=== PATIENT | female | born 1980 | race African-American/Black ===

== ENCOUNTER 2018-12-16 07:30 | Emergency (ER) | payer OTHER ==
--- NOTE | 2018-12-16 07:33 | PDOC ---
History of Present Illness - General Chief Complaint: Pain, Acute Stated Complaint: right ankle pain Time Seen by Provider: 12/16/18 07:32 - History of Present Illness Initial Comments: 12/16/18 08:07 38yo female, who works in [employer] at [employer], presents after a mechanical slip and fall on the ice while walking into work. Pt states she slipped on ice in the parking lot. States she twisted her R ankle -inversion and fell landing on her hands. No head injury. No loc. No neck or back pain. Pt was able to get up and walk into the hospital. Pt c/o R lateral malleolus pain/ankle pain. No foot pain. No knee or hip pain. No cp/sob/palpitations. No abd pain. No n/v/d. No other complaints. PMhx: fibroids PShx: fibroid ablation Allergies: NKDA Meds: OCP Past History - Past Medical History Allergies/Adverse Reactions: Allergies Allergy/AdvReac Type Severity Reaction Status Date / Time No Known Allergies Allergy Verified 12/16/18 07:30 Home Medications: Ambulatory Orders Norgestimate-Ethinyl Estradiol [Hnw-Zv-Jbiotjol Tablet] 1 each PO DAILY Review of Systems - Review of Systems Able to Perform ROS?: Yes Is the patient limited Trinidadian proficient: No Constitutional: No: Chills, Fever HEENTM: No: Nose Pain, Throat Pain Respiratory: No: Cough, Shortness of Breath Cardiac (ROS): No: Chest Pain, Lightheadedness, Palpitations ABD/GI: No: Diarrhea, Nausea, Vomiting, Abdominal cramping : No: Burning, Dysuria Musculoskeletal: Yes: Joint Pain (R ankle pain). No: Back Pain, Neck Pain Integumentary: No: Bruising, Change in Color, Erythema Neurological: No: Headache, Numbness, Paresthesia, Tingling, Tremors All Other Systems: Reviewed and Negative *Physical Exam - Vital Signs 12/16/18 08:11 Selected Entries 12/16/18 07:30 Temperature 98.9 F Pulse Rate 69 Respiratory 16 Rate Blood Pressure 122/90 Blood Pressure 100 Mean O2 Sat by Pulse 100 Oximetry (%) Weight 90.718 kg - Physical Exam General Appearance: Yes: Nourished, Appropriately Dressed. No: Apparent Distress HEENT: positive: EOMI, Normal Voice Neck: positive: Supple. negative: Tender, Tender midline Respiratory/Chest: positive: Lungs Clear, Normal Breath Sounds. negative: Respiratory Distress Cardiovascular: positive: Regular Rhythm, Regular Rate, S1, S2. negative: Edema Gastrointestinal/Abdominal: positive: Normal Bowel Sounds, Flat, Soft. negative : Guarding, Rebound, Tenderness Musculoskeletal: positive: Normal Inspection. negative: Decreased Range of Motion, Vertebral Tenderness Extremity: positive: Normal Capillary Refill, Normal Inspection, Normal Range of Motion, Other (R lateral malleolus ttp, pedal pulses intact, no hand ttp, no ttp over foot, sensation intact, brisk cap refill, no wrist ttp). negative: Calf Tenderness Integumentary: positive: Normal Color, Dry, Warm Neurologic: positive: Fully Oriented, Alert, Normal Mood/Affect, Normal Response , Motor Strength 5/5 Medical Decision Making - Medical Decision Making 12/16/18 08:13 a/p: 38yo female with R lateral malleolus pain after mechanical slip and fall -mild soft tissue swelling over R lateral malleolus, mild ttp just anterior to the malleolus, neg anterior drawer, from of the ankle joint, joint is stable -upreg -R ankle xray -tylenol for pain -ice bag 12/16/18 09:00 xrays reviewed - no acute findings 12/16/18 09:09 pt with mild pain with ambulation placed in an gabriel wrap, air cast, walking shoe pt feeling better after splinting. will give orthopedic follow up if pain continues tylenol as needed for pain ice and elevate 12/16/18 09:28 xray reviewed by radiology - no acute findings *DC/Admit/Observation/Transfer Diagnosis at time of Disposition: Ankle sprain - Discharge Dispostion Disposition: HOME Condition at time of disposition: Stable Decision to Admit order: No - Referrals Referrals: Atif Bejarano MD [Staff Physician] - George Dasilva MD [Staff Physician] - - Patient Instructions Printed Discharge Instructions: DI for Ankle Sprain Additional Instructions: Please apply ice to the ankle - 20 min on and 20 min off. Please take tylenol as needed for pain. Please make an appointment to see orthopedics for follow up for your ankle pain. Please also follow up with your PMD. Please return to the ED with any further concerns or complaints. - Post Discharge Activity
[2018-12-16 07:37] VITALS: BP 122/90; PULSE 69; TEMP 98.9; BMI 31.3
[2018-12-16] MEDS ORDERED: ACETAMINOPHEN 500 MG TABLET (FP) PO ONE (08:13)
[2018-12-16] MEDS ORDERED: ACETAMINOPHEN 500 MG TABLET (FP) ONE (08:17)
== END 2018-12-16 09:21 | disposition home or self-care (01) ==
LOC: FER 07:30
PROC: 2W3QX1Z Immobilization of Right Lower Leg using Splint (ICD-10-PCS; principal; 2018-12-16)
DX: S93.401A Sprain of unspecified ligament of right ankle, initial encounter (principal); W00.0XXA Fall on same level due to ice and snow, initial encounter; Y93.01 Activity, walking, marching and hiking; Y92.481 Parking lot as the place of occurrence of the external cause
CPT/HCPCS: 73610-TC-RT-FY; 73630-TC-RT-FY; 84703; 99282-25

== ENCOUNTER 2019-02-02 15:52 | Emergency (ER) | payer BC, OTHER ==
[2019-02-02 16:19] VITALS: BP 147/83; PULSE 90; TEMP 97.8; BMI 31.3
[2019-02-02] MEDS ORDERED: NAPROXEN 500 MG TABLET (FP) PO ONE (16:50)
[2019-02-02] MEDS ORDERED: NAPROXEN 500 MG TABLET (FP) ONE (16:54)
--- NOTE | 2019-02-02 16:54 | PDOC ---
History of Present Illness - General Chief Complaint: Pain Stated Complaint: RT HIP PAIN Time Seen by Provider: 02/02/19 15:55 - History of Present Illness Initial Comments: 02/02/19 16:48 38 F with no PMH presents to ED with 1 day of R hip pain. Pt denies any falls or trauma. States that she awoke this morning with a soreness in her R hip. Throughout the day, the pain gradually worsened. Pain is worse with movement of her RLE and alleviated with rest. 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 Denies any F/C. Pt went to her PMD today who sent her to ED to rule out "nerve compression". Pt denies any numbness or weakness in her extremity. Torie any shooting pain down the leg. Denies any back pain. Past History - Past Medical History Allergies/Adverse Reactions: Allergies Allergy/AdvReac Type Severity Reaction Status Date / Time No Known Allergies Allergy Verified 02/02/19 15:55 Home Medications: Ambulatory Orders Norgestimate-Ethinyl Estradiol [Yec-Iq-Bcyuzduj Tablet] 1 each PO DAILY Naproxen 500 mg PO BID #10 tablet 02/02/19 CVA: No COPD: No - Suicide/Smoking/Psychosocial Hx Smoking History: Never smoked Have you smoked in the past 12 months: No Information on smoking cessation initiated: No Hx Alcohol Use: No Drug/Substance Use Hx: No Review of Systems - Review of Systems Comments:: 02/02/19 16:49 "GENERAL/CONSTITUTIONAL: No fever or chills. No weakness. HEAD, EYES, EARS, NOSE AND THROAT: No change in vision. No ear pain or discharge. No sore throat. CARDIOVASCULAR: No chest pain, no shortness of breath, no loss of consciousness RESPIRATORY: No cough, wheezing, or hemoptysis. GASTROINTESTINAL: No nausea, vomiting, diarrhea or constipation. GENITOURINARY: No dysuria, frequency, or change in urination. MUSCULOSKELETAL: +R hip pain SKIN: No rash NEUROLOGIC: No vertigo, no change in strength/sensation. ENDOCRINE: No increased thirst. No abnormal weight change. HEMATOLOGIC/LYMPHATIC: No anemia, easy bleeding, or history of blood clots. ALLERGIC/IMMUNOLOGIC: No hives or skin allergy. *Physical Exam - Vital Signs Last Vital Signs Temp Pulse Resp BP Pulse Ox 97.8 F 90 20 147/83 100 02/02/19 15:55 02/02/19 15:55 02/02/19 15:55 02/02/19 15:55 02/02/19 15:55 - Physical Exam Comments: 02/02/19 16:50 GENERAL: Awake, alert, and fully oriented, in no acute distress. HEAD: No signs of trauma EYES: PERRLA, EOMI, sclera anicteric, conjunctiva clear ENT: Auricles normal inspection, hearing grossly normal, nares patent, oropharynx clear without exudates. Moist mucosa NECK: Nontender, no stepoffs, Normal ROM, supple, no lymphadenopathy, JVD, or masses LUNGS: Breath sounds equal, clear to auscultation bilaterally. No wheezes, and no crackles HEART: Regular rate and rhythm, normal S1 and S2, no murmurs, rubs or gallops ABDOMEN: Soft, nontender, normoactive bowel sounds. No guarding, no rebound. No masses EXTREMITIES: Normal range of motion, no edema. No clubbing or cyanosis. No cords, erythema, or tenderness NEUROLOGICAL: Cranial nerves II through XII intact. 5/5 strength and sensation in all extremities, Normal speech, normal gait, normal cerebellar function SKIN: Warm, Dry, normal turgor, no rashes or lesions noted. ED Treatment Course - RADIOLOGY Radiology Studies Ordered: Category Date Time Status HIP & PELVIS-RIGHT [RAD] Stat Radiology 02/02/19 16:47 Ordered Medical Decision Making - Medical Decision Making 02/02/19 16:51 38 F with atraumatic R hip pain, worsened with movement and alleviated with rest. Suspect bursitis 2/2 overuse. Pt with normal neurovascular exam, no deformity. - R hip X ray - Naproxen - F/u ortho 02/02/19 18:32 XR negative on my read Pt is well appearing, with normal vitals. Clinically stable for DC at this time. I discussed the physical exam findings, ancillary test results and final diagnoses with the patient. I answered all of the patient's questions. The patient was satisfied with the care received and felt comfortable with the discharge plan and treatment plan. The patient agrees to follow up with the primary care physician within 24-72 hours. *DC/Admit/Observation/Transfer Diagnosis at time of Disposition: Hip pain - Discharge Dispostion Disposition: HOME - Prescriptions Prescriptions: Naproxen 500 mg PO BID #10 tablet - Referrals Referrals: George Dasilva MD [Staff Physician] - - Patient Instructions Printed Discharge Instructions: DI for Hip Bursitis Additional Instructions: Take the naproxen twice daily as prescribed to treat your hip pain. Be sure to rest and do not over-exert yourself. If you develop any worsening pain, fevers, or any other concerning symptoms, return to the ER immediately. If the pain persists for >48 hours, call the number provided to make an appointment with an orthopedic surgeon. You may need a MRI to further evaluate your pain. - Post Discharge Activity Forms/Work/School Notes: Back to Work - Attestations Physician Attestion: 02/02/19 16:54 I, Dr. George Gunter MD, attest that this document has been prepared under my direction and personally reviewed by me in its entirety. I further attest, that it accurately reflects all work, treatment, procedures and medical decision -making performed by me.
== END 2019-02-02 18:47 | disposition home or self-care (01) ==
LOC: FER 15:52
DX: M25.551 Pain in right hip (principal)
CPT/HCPCS: 73523-TC-FY; 81025; 99283-25